=== PATIENT | female | born 1985 | race Hispanic/Latino ===

== ENCOUNTER → 2023-09-28 07:04 | Outpatient (REF) | payer BC, SELFPAY | LOC: RAD 07:04 | PROVIDERS: ATTENDING PHYSICIAN Surgery | DX: N23 Unspecified renal colic (principal) | CPT/HCPCS: 74176 ==

== ENCOUNTER → 2023-10-13 09:27 | Outpatient (REF) | payer BC, SELFPAY | LOC: WDC 09:27 | PROVIDERS: ATTENDING PHYSICIAN Nurse Practitioner Family | DX: N64.4 Mastodynia (principal) | CPT/HCPCS: 76642; 77062; 77066 ==